=== PATIENT | male | born 2000 | race Hispanic/Latino ===

== ENCOUNTER 2022-07-01 17:54 | Emergency (ER) | payer SELFPAY ==
[~2022-07-01] VITALS: Ht 172.7 cm; Wt 113.6 kg
[~2022-07-01 17:54] MED LIST: AMOXIL400 MG/51 OR; NAPROSYN250 MG PO; TRIAMINI4 OR
[2022-07-01] MEDS ORDERED: AMOX/K CLAV875 M1 PO (18:27)
[2022-07-01] MEDS ORDERED: FLOXIN OTIC0.3 % AS (18:27)
[2022-07-01 19:03] VITALS: BP 139/97
== END 2022-07-01 19:03 | disposition home or self-care (01) | DRG 153 ==
LOC: ED 17:54
DX: H66.92 Otitis media, unspecified, left ear (principal)